=== PATIENT | female | born 1975 | race Caucasian/White ===

== ENCOUNTER → 2019-03-07 15:01 | Outpatient (CLI) | payer OTHER, SELFPAY ==
--- NOTE | 2019-03-07 | DI.RAD.S_ITS ---
PROCEDURE: XR HAND RT MIN 3V INDICATIONS: R HAND INJURY TECHNIQUE: 3 views of the hand(s) acquired. COMPARISON: None. FINDINGS: Bones: No dislocations. Carpal bones are normally aligned. No suspicious bony lesions. There is a diagonal fracture through the mid shaft of the fourth metacarpal bone. The fifth metacarpal appears intact. Soft tissues: No suspicious soft tissue calcifications. IMPRESSION: Fourth metacarpal diaphyseal diagonal fracture, mildly displaced. Dictated by: Erasto Wood M.D. on 03/07/2019 at 16:32 Approved by: Erasto Wood M.D. on 03/07/2019 at 16:33
== END ==
PROVIDERS: Family Provider Family Medicine; PCP Family Medicine; Visit Provider Internal Medicine
DX: S62.394A Other fracture of fourth metacarpal bone, right hand, initial encounter for closed fracture (principal)
CPT/HCPCS: 73130

== ENCOUNTER → 2019-07-14 09:51 | Outpatient (CLI) | payer OTHER, SELFPAY ==
--- NOTE | 2019-07-14 10:01 | DI.CT.S_ITS ---
PROCEDURE: CT UE RT WO CON INDICATIONS: Displaced fracture TECHNIQUE: Noncontrast 1 mm axial sections acquired through the carpal bones, with coronal and sagittal reformats. COMPARISON: [facility], CR, XR HAND 3+ VIEWS RIGHT, 06/22/2019, 8:56. [facility] [place], CR, XR HAND 3+ VIEWS RIGHT, 06/13/2019, 15:10. [facility] [place], CR, XR HAND 3+ VIEWS RIGHT, 05/04/2019, 14:31. [facility] [place], CR, XR HAND 3+ VIEWS RIGHT, 04/14/2019, 12:02. [facility], CR, XR HAND 3+ VIEWS RIGHT, 03/15/2019, 15:13. [facility], CR, XR HAND RT MIN 3V, 03/07/2019, 15:12. FINDINGS: Image quality: Diagnostic. Bones: A chronic oblique fracture through the mid to distal shaft of the 4th metacarpal is again identified. The alignment is unchanged. Developing bridging callus formation at the fracture site is noted. Portions of the fracture line remains apparent. No new or acute fractures are evident. Qjeg-xb-[id number] degenerative changes of the hand and wrist are evident. No suspicious osseous lesions or dislocations are present. Small bone island is evident involving the capitate. Soft tissues: The soft tissues of the hand are grossly unremarkable. No soft tissue masses or loculated fluid collections are identified. No significant atrophy involving the imaged muscles is evident. Please note that the ligamentous, tendinous, and cartilaginous structures of the hand and wrist are not adequately evaluated on CT. IMPRESSION: 1. Unchanged alignment of the healing 4th metacarpal fracture with developing bridging callus. 2. No new or acute fractures. Dictated by: Stefano Murphy M.D. on 07/14/2019 at 16:52 Approved by: Stefano Murphy M.D. on 07/14/2019 at 16:54
== END ==
PROVIDERS: PCP Family Medicine; Visit Provider Orthopaedic Surgery
DX: S62.324D Displaced fracture of shaft of fourth metacarpal bone, right hand, subsequent encounter for fracture with routine healing (principal); X58.XXXD Exposure to other specified factors, subsequent encounter
CPT/HCPCS: 73200

== ENCOUNTER → 2021-04-26 09:00 | Outpatient (CLI) | payer OTHER, SELFPAY ==
--- NOTE | 2021-04-26 09:02 | DI.MG.S_ITS ---
BILATERAL DIGITAL SCREENING MAMMOGRAM 3D/2D WITH CAD: 04/26/2021 CLINICAL: Routine screening. Comparison is made to exams dated: 05/03/2015 ultrasound biopsy, 05/03/2015 mammogram, 04/19/2015 ultrasound, 04/19/2015 mammogram, and 04/05/2015 mammogram - [facility]. The tissue of both breasts is heterogeneously dense. This may lower the sensitivity of mammography. Current study was also evaluated with a Computer Aided Detection (CAD) system. There is a biopsy clip in the left breast. No significant masses, calcifications, or other findings are seen in either breast. There has been no significant interval change. IMPRESSION: NEGATIVE There is no mammographic evidence of malignancy. A 1 year screening mammogram is recommended. This exam was interpreted at Station ID: [id number]. NOTE: For mammograms, a report in lay terms will be sent to the patient. Approximately 15% of breast malignancies will not be visualized mammographically. In the management of a palpable breast mass, a negative mammogram must not discourage biopsy of a clinically suspicious lesion. Electronically Signed By: Basilia guidry/tia:04/26/2021 09:43:22 copy to: Branden Woodward letter sent: Normal Exam ACR BI-RADS Category 1: Negative [id number]
== END ==
PROVIDERS: PCP Family Medicine; Referring Provider Family Medicine; Visit Provider Family Medicine
DX: Z12.31 Encounter for screening mammogram for malignant neoplasm of breast (principal)
CPT/HCPCS: 77063; 77067

== ENCOUNTER → 2025-04-28 12:06 | Outpatient (CLI) | payer OTHER, SELFPAY ==
--- NOTE | 2025-04-28 | DI.RAD.S_ITS ---
PROCEDURE: XR SHOULDER RT MIN 2V INDICATIONS: Strain of right shoulder TECHNIQUE: 3 views of the shoulder were acquired. COMPARISON: None. FINDINGS: Bones: No fractures or dislocations. Mild acromioclavicular joint degeneration. No suspicious bony lesions. Visualized ribs appear intact. Soft tissues: No suspicious soft tissue calcifications. IMPRESSION: No acute osseous abnormalities. Mild acromioclavicular joint degeneration. Dictated by: Stephen Rayo M.D. on 04/28/2025 at 14:48 Approved by: Stephen Rayo M.D. on 04/28/2025 at 14:49
== END ==
LOC: RAD 12:09
PROVIDERS: PCP Family Medicine; Referring Provider Family Medicine; Visit Provider Family Medicine
DX: S46.911A Strain of unspecified muscle, fascia and tendon at shoulder and upper arm level, right arm, initial encounter (principal); M19.011 Primary osteoarthritis, right shoulder; W54.8XXA Other contact with dog, initial encounter
CPT/HCPCS: 73030